=== PATIENT | female | born 1980 | race Caucasian/White ===

== ENCOUNTER 2018-02-10 09:30 | Day surgery (SDC) | payer OTHER ==
[~2018-02-10] VITALS: Ht 167.6 cm; Wt 74.8 kg
[~2018-02-10 09:30] MED LIST: APRESOLINE100 MG PO; CALCIUM ACETAT667 MG PO; LASIX80 MG PO; LEVEMIR100 UNIT/2 SC; NEPHRO-VITE,1 TABLET PO; NOVOLOG 10100 UNITS/ SC; PRILOSEC20 MG PO; PROCARDIA XL30 MG PO; REGLAN10 MG PO; RENVELA800 MG PO; TOPROL XL100 MG PO; VITAMIN D400 UNIT PO; XANAX0.5 MG PO
[2018-02-10 10:22] LABS: HEMATOCRIT 34.7 % (36.0-46.0); HEMOGLOBIN 11.4 G/DL (11.9-15.5); MCH 31.4 PG (29.0-34.0); MCHC 32.9 G/DL (30.0-36.0); MCV 95.6 FL (83-99); PLATELET COUNT 255 K/uL (156-360); RBC DIS.WIDTH-CV 13.9 % (11.8-14.6); RBC DIS.WIDTH-SD 48.9 % (39-53); RED BLOOD COUNT 3.63 M/uL (3.80-5.20); WHITE BLOOD COUNT 7.4 K/uL (4.1-10.2)
[2018-02-10 10:41] VITALS: BP 180/95
[2018-02-10 10:48] LABS: CHLORIDE 104 MEQ/L (99-109); CREATININE 5.5 MG/DL (0.6-1.3); GFR ESTIMATE (CALCULATED) 9 mL/min/; GLUCOSE 68 mg/dL (70-99); POTASSIUM 4.8 MEQ/L (3.7-5.4); SODIUM 140 MEQ/L (136-147); UREA NITROGEN (BUN) 44 mg/dL (9-23)
[2018-02-10 15:45] VITALS: BP 143/79
[2018-02-10 16:17] VITALS: BP 151/79
== END 2018-02-10 16:20 | disposition home or self-care (01) ==
LOC: SDC 09:30
PROVIDERS: Surgery
DX: I12.0 Hypertensive chronic kidney disease with stage 5 chronic kidney disease or end stage renal disease (principal); E11.22 Type 2 diabetes mellitus with diabetic chronic kidney disease; N18.6 End stage renal disease; Z99.2 Dependence on renal dialysis; Z79.4 Long term (current) use of insulin
CPT/HCPCS: 80048; 82948; 85027; 93005; J0690; J1170; J1644; J2250; J2720; J3010; S0020